=== PATIENT | male | born 1980 | race African-American/Black ===

== ENCOUNTER 2017-05-22 05:06 | Emergency (ER) | payer OTHER ==
[2017-05-22] MEDS ORDERED: AZITHROMYCIN 1 GM PACKET PO ONE (05:29)
[2017-05-22] MEDS ORDERED: AZITHROMYCIN 250 MG TABLET ONE (05:30)
--- NOTE | 2017-05-22 05:34 | PDOC ---
History of Present Illness - General Chief Complaint: Urinary Problem Stated Complaint: BURNING ON URINATION WITH DISCHARGE FOR 4 DAYS Time Seen by Provider: 05/22/17 05:28 History Source: Patient Exam Limitations: No Limitations - History of Present Illness Initial Comments: 05/22/17 05:31 This is a 37-year-old male who comes in complaining of penile discharge with burning on urination. Patient is sexually active and said the condom broke last time he had sexual intercourse. Patient otherwise denies history of STDs.. PAST MEDICAL HISTORY: no significant history PAST SURGICAL HISTORY: no significant history FAMILY HISTORY: no pertinant history SOCIAL HISTORY: Pt lives with family and is employed. MEDICATIONS: reviewed ALLERGIES: As per nursing notes Review of Systems General: No fevers or chills, no weakness, no weight loss HEENT: No change in vision. No sore throat,. No ear pain CardioVascular: No chest pain or shortness of breath Respiratory:No cough, or wheezing. Gastrointestinal: no nausea, vomitting, diarrhea or constipation, No rectal bleeding Genitourinary: Burning and penile discharge as per history of present illness Musculoskeletal: No joint or muscle pain or swelling Neurologic: No headache, vertigo, dizziness or loss of consciousness Psychiatric: nor depression Skin: No rashes or easy bruising Endocrine: no increased thirst or abnormal weight change Allergic: no skin or latex allergy All other systems reviewed and normal GENERAL: The patient is awake, alert, and fully oriented, in no acute distress. HEAD: Normal with no signs of trauma. EYES: Pupils equal, round and reactive to light, extraocular movements intact, sclera anicteric, conjunctiva clear. : This is a circumcised male, there is no lesions of the external genitalia. There is a small amount of discharge from penis EXTREMITIES: Normal range of motion, no edema. NEUROLOGICAL: Normal speech, normal gait. PSYCH: Normal mood, normal affect. SKIN: Warm, Dry, normal turgor, no rashes or lesions noted. Assessment and plan: This is a 37-year-old male who comes in complaining of some penile discharge and dysuria. Patient had a culture for chlamydia and gonorrhea sent and blood was drawn for syphilis. Patient was treated for chlamydia and gonorrhea. Patient was told to not resume sexual intercourse until he knows result of the cultures. Patient discharged will follow-up with his primary care doctor as needed Past History - Past Medical History Allergies/Adverse Reactions: Allergies Allergy/AdvReac Type Severity Reaction Status Date / Time No Known Allergies Allergy Verified 05/22/17 05:08 Home Medications: Ambulatory Orders Amlodipine Bes/Olmesartan Med [[place] 10-40 mg Tablet] 10 mg PO DAILY 05/22/17 HTN: Yes - Immunization History Td Vaccination: Yes TDAP Vaccination: Yes Immunization Up to Date: Yes - Psycho/Social/Smoking Cessation Hx Anxiety: No Suicidal Ideation: No Smoking Status: Yes Smoking History: Former smoker Have you smoked in the past 12 months: No Number of Cigarettes Smoked Daily: 12 If you are a former smoker, when did you quit?: 4.5 YEARS AGO Cigars Per Day: 0 Information on smoking cessation initiated: No Hx Alcohol Use: No Drug/Substance Use Hx: No Substance Use Type: Alcohol *DC/Admit/Observation/Transfer Diagnosis at time of Disposition: STD (male) - Discharge Dispostion Disposition: HOME Condition at time of disposition: Stable Admit: No - Patient Instructions Additional Instructions: You have been fully treated for chlamydia and gonorrhea and blood work was sent for syphilis. No sexual intercourse until you know the results of your cultures and then if they're positive your partner will need to be treated before resumption of intercourse. Return to the emergency department immediately with ANY new, persistent or worsening symptoms. Continue any medications as previously prescribed by your physician. You should follow up with your primary doctor as soon as possible regarding today's emergency department visit. . Please make sure your doctor reviews the results of your emergency evaluation. Thank you for coming to the Emergency Department today for your care. It was a pleasure to see you today. Please note that your evaluation is INCOMPLETE until you follow-up with your doctor.
[2017-05-22 05:41] VITALS: BP 156/102; BMI 30.8
== END 2017-05-22 05:48 | disposition home or self-care (01) ==
LOC: FER 05:06
DX: A64 Unspecified sexually transmitted disease (principal); Z87.891 Personal history of nicotine dependence; I10 Essential (primary) hypertension
CPT/HCPCS: 36415; 86593; 87491; 87591; 99282-25

== ENCOUNTER 2020-12-14 00:51 | Emergency (ER) | payer OTHER ==
[2020-12-14 01:04] VITALS: BP 159/111; PULSE 61; TEMP 98.9; BMI 30.7
[2020-12-14] MEDS ORDERED: AZITHROMYCIN 500 MG TABLET PO ONE (01:17)
[2020-12-14] MEDS ORDERED: AZITHROMYCIN 500 MG TABLET ONE (01:20)
[2020-12-14 02:06] LABS: EPI CELLS 2 /uL (0-25.1); HYALINE CASTS 0 /uL (0-3.1); URINE APPEARANCE CLEAR; URINE BACTERIA 153 /uL (0-1359); URINE BILIRUBIN NEGATIVE (NEGATIVE); URINE COLOR YELLOW; URINE GLUCOSE (UA) NEGATIVE (NEGATIVE); URINE KETONE NEGATIVE (NEGATIVE); URINE LEUK ESTERASE TRACE (NEGATIVE); URINE NITRITE NEGATIVE (NEGATIVE); URINE PROTEIN NEGATIVE (NEGATIVE); URINE RBC 15 /uL (0-23.9); URINE UROBILINOGEN 0.2 mg/dL (0.2-1.0); URINE WBC 37 /uL (0-25.8)
== END 2020-12-14 01:29 | disposition home or self-care (01) ==
LOC: FER 00:51
DX: R36.9 Urethral discharge, unspecified (principal); Z20.2 Contact with and (suspected) exposure to infections with a predominantly sexual mode of transmission
CPT/HCPCS: 36415; 81003; 87086; 87491; 87591; 99284-25

== ENCOUNTER 2021-06-03 02:00 | Emergency (ER) | payer OTHER ==
[2021-06-03 02:08] VITALS: BMI 29.2
[2021-06-03] MEDS ORDERED: AZITHROMYCIN 500 MG TABLET PO ONE (02:16)
[2021-06-03] MEDS ORDERED: amLODIPine BESYLATE 5 MG TABLET (FP) PO ONE (02:20)
[2021-06-03] MEDS ORDERED: amLODIPine BESYLATE 5 MG TABLET (FP) ONE (02:21)
[2021-06-03] MEDS ORDERED: AZITHROMYCIN 250 MG TABLET ONE (02:21)
[2021-06-03 03:06] LABS: EPI CELLS 3 /uL (0-25.1); HYALINE CASTS 4 /uL (0-3.1); URINE APPEARANCE CLEAR; URINE BACTERIA >9,000 /uL (0-1359); URINE BILIRUBIN NEGATIVE (NEGATIVE); URINE COLOR YELLOW; URINE GLUCOSE (UA) NEGATIVE (NEGATIVE); URINE KETONE NEGATIVE (NEGATIVE); URINE LEUK ESTERASE 2+ (NEGATIVE); URINE NITRITE POSITIVE (NEGATIVE); URINE PROTEIN TRACE (NEGATIVE); URINE RBC 1094 /uL (0-23.9); URINE WBC 610 /uL (0-25.8)
[2021-06-03] MEDS ORDERED: CIPROFLOXACIN 500 MG TABLET (RESTRICTED TO ID) PO ONE (03:11)
[2021-06-03] MEDS ORDERED: CIPROFLOXACIN 250 MG TABLET (RESTRICTED TO ID) PO ONE (03:21)
[2021-06-03 03:24] VITALS: BP 144/95; PULSE 72; TEMP 99.4
== END 2021-06-03 03:29 | disposition home or self-care (01) ==
LOC: FER 02:00
DX: A64 Unspecified sexually transmitted disease (principal); N30.90 Cystitis, unspecified without hematuria
CPT/HCPCS: 36415; 81003; 87491; 87591; 99284-25

== ENCOUNTER 2023-09-14 02:29 | Emergency (ER) | payer SELFPAY ==
[2023-09-14 02:34] VITALS: TEMP 98.1; BMI 32.1
[2023-09-14] MEDS ORDERED: SODIUM CHLORIDE 0.9% 500 ML INFUS.BAG IV ONE (02:55)
[2023-09-14 03:57] LABS: BASO % 0.6 % (0-2.0); EOS % 2.2 % (0-4.5); HEMATOCRIT 47.4 % (35.4-49); HEMOGLOBIN 16.7 GM/dL (11.7-16.9); LYMPH % 21.7 % (8-40); MCH 29.9 pg (25.7-33.7); MCHC 35.3 g/dl (32.0-35.9); MEAN CELL VOLUME 84.8 fl (80-96); MEAN PLT VOLUME 7.4 fl (7.5-11.1); MONO % 8.2 % (3.8-10.2); NEUT % 67.3 % (42.8-82.8); PLATELET COUNT 299 10^3/uL (134-434); RBC 5.59 M/mm3 (4.00-5.60); RDW 13.6 % (11.9-15.9); VENOUS BASE EXCESS -1.1 mmol/L (-2-2); VENOUS O2 SATURATION 31.4 % (70-80); VENOUS PCO2 49.3 mmHg (38-52); VENOUS PH 7.333 (7.310-7.410); WHITE BLOOD COUNT 7.6 K/mm3 (4.0-10.0)
[2023-09-14] MEDS ORDERED: METOCLOPRAMIDE HCL INJECTION 10 MG/2 ML VIAL IVPUSH ONE (04:14)
[2023-09-14 04:16] LABS: POTASSIUM 3.9 mmol/L (3.5-5.1)
[2023-09-14 04:18] LABS: CALCIUM 9.9 mg/dL (8.5-10.1)
[2023-09-14 04:19] LABS: ALBUMIN 4.4 g/dl (3.4-5.0); BLOOD UREA NITROGEN 13.6 mg/dL (7-18)
[2023-09-14 04:22] LABS: CREATININE 1.1 mg/dL (0.55-1.3)
[2023-09-14 04:24] LABS: TOT PROT 8.2 g/dl (6.4-8.2)
[2023-09-14] MEDS ORDERED: METOCLOPRAMIDE HCL INJECTION 10 MG/2 ML VIAL ONE (04:53)
[2023-09-14] MEDS ORDERED: IBUPROFEN 400 MG TABLET (FP) PO ONE ×2 (05:10→05:26)
[2023-09-14 05:42] LABS: COCAINE, UR NEGATIVE (NEGATIVE); OPIATES, URI NEGATIVE (NEGATIVE)
[2023-09-14 05:43] LABS: METHADONE, UR NEGATIVE (NEGATIVE); URINE BENZODIAZEPINES NEGATIVE (NEGATIVE)
[2023-09-14 06:03] LABS: PHENCYCLIDINE,URINE NEGATIVE (NEGATIVE); URINE AMPHETAMINES NEGATIVE (NEGATIVE); URINE BARBITURATES NEGATIVE (NEGATIVE)
[2023-09-14 11:45] VITALS: BP 143/78; PULSE 68; RESP 18
== END 2023-09-14 12:31 | disposition home or self-care (01) ==
LOC: JER 02:29
PROC: 3E033NZ Introduction of Analgesics, Hypnotics, Sedatives into Peripheral Vein, Percutaneous Approach (ICD-10-PCS; principal; 2023-09-14)
DX: R41.82 Altered mental status, unspecified (principal); R55 Syncope and collapse
CPT/HCPCS: 36415; 71045-TC-FY; 80053; 80307; 82803; 84484; 85025; 93005; 93010; 99285-25